=== PATIENT | female | born 1970 | race Caucasian/White ===

== ENCOUNTER 2016-09-13 07:35 | Emergency (ER) | payer OTHER ==
[~2016-09-13] VITALS: Ht 165.1 cm; Wt 78.0 kg
[2016-09-13 07:44] VITALS: BP 130/85
--- NOTE | 2016-09-13 07:48 | NUR ---
Patient ambulated to bed 08.
--- NOTE | 2016-09-13 07:49 | NUR ---
46/F BIB SELF C/O SUTURES BELOW LEFT KNEE X3 WEEKS. NEEDS SUTURE REMOVAL. WOUND C/D/I/ PT STATED SORE THROAT WHEN SWALLOWING X 1 DAY ALSO. DENIES N/V/D; AAOX4 WITH EVEN AND STEADY GAIT; LUNGS CLEAR BL; HR EVEN AND REGULAR; PT DENIES ANY FEVER, CP, SOB, OR COUGH AT THIS TIME; PATIENT STATES PAIN OF 0/10 AT THIS TIME; PATIENT POSITIONED FOR COMFORT; HOB ELEVATED; BEDRAILS UP X2; BED DOWN. ER MD MADE AWARE OF PT STATUS.
--- NOTE | 2016-09-13 08:06 | NUR ---
Dr. Mary evaluating patient at bedside.
--- NOTE | 2016-09-13 08:11 | NUR ---
ER MD DR OROZCO DID SUTURE REMOVAL PT Vamsi FRIEDMAN.NO S/S OF INFECTION NOTED AT THIS TIME. WOUND C/D/I. PT TOLERTAED PROCEDURE WELL.VSS AT THIS TIME.
[2016-09-13 08:34] VITALS: BP 118/66
== END 2016-09-13 08:34 | disposition home or self-care (01) ==
LOC: MED 07:35
DX: S81.012D Laceration without foreign body, left knee, subsequent encounter (principal); J02.9 Acute pharyngitis, unspecified; X58.XXXD Exposure to other specified factors, subsequent encounter
CPT/HCPCS: 90471; 90715; 99283